=== PATIENT | female | born 1935 | race Caucasian/White ===

== ENCOUNTER 2017-04-25 08:22 | Outpatient (CLI) | payer MEDICARE, OTHER ==
[2017-04-25 13:30] LABS: BASOPHILS % (AUTO) 0.6 %; EOSINOPHILS # (AUTO) 0.2 10^3/uL (0.0-0.7); EOSINOPHILS % (AUTO) 3.1 %; HCT - HEMATOCRIT 41.3 % (37.0-47.0); HGB - HEMOGLOBIN 13.9 g/dL (12.0-16.0); LYMPHOCYTES # (AUTO) 2.1 10^3/uL (1.5-3.5); LYMPHOCYTES % (AUTO) 35.7 %; MEAN CORPUSCULAR HEMOGLOBIN 30.5 pg (27.0-31.0); MEAN CORPUSCULAR HGB CONC 33.5 g/dL (32.0-36.0); MEAN CORPUSCULAR VOLUME 91.1 fL (81.0-99.0); MEAN PLATELET VOLUME 7.8 fL (7.9-10.8); MONOCYTES # (AUTO) 0.4 10^3/uL (0.0-1.0); MONOCYTES % (AUTO) 7.6 %; NEUTROPHILS # (AUTO) 3.1 10^3/uL (1.5-6.6); RED BLOOD COUNT 4.54 10^6/uL (4.20-5.40); RED CELL DISTRIBUTION WIDTH 14.9 % (12.0-15.0); UNCORRECTED WHITE BLOOD COUNT 5.8 x10^3/uL; WHITE BLOOD COUNT 5.8 x10^3/uL (4.8-10.8)
[2017-04-25 13:52] LABS: ALBUMIN/GLOBULIN RATIO 1.4 (1.0-2.2); BILIRUBIN,TOTAL 0.9 mg/dL (0.2-1.0); BUN - BLOOD UREA NITROGEN 18 mg/dL (6-20); CALCIUM 9.3 mg/dL (8.5-10.3); CARBON DIOXIDE - CO2 28 mmol/L (21-32); CHLORIDE 102 mmol/L (101-111); CHOL/HDL RATIO 2.2 (<4.4); CHOLESTEROL 237 mg/dL; CREATININE 0.7 mg/dL (0.4-1.0); GFR - MDRD 80 (>89); GLUCOSE 94 mg/dL (70-100); HDL CHOLESTEROL 107 mg/dL; LDL/HDL RATIO 1.1 (<4.4); POTASSIUM 3.9 mmol/L (3.5-5.0); SODIUM 138 mmol/L (135-145); TOTAL PROTEIN 6.8 g/dL (6.7-8.2); TRIGLYCERIDES 69 mg/dL; VLDL CHOLESTEROL 14 mg/dL
== END 2017-04-25 08:23 | disposition home or self-care (01) ==
LOC: LAB.N 08:22
PROVIDERS: ATTEND Physician Assistant Medical
DX: E55.9 Vitamin D deficiency, unspecified (principal); E78.2 Mixed hyperlipidemia; F32.9 Major depressive disorder, single episode, unspecified
CPT/HCPCS: 36415; 80053; 80061; 82306; 84443; 85025

== ENCOUNTER 2017-05-02 10:37 | Outpatient (CLI) | payer MEDICARE, OTHER ==
[2017-05-02] MEDS ORDERED: IOPAMIDOL-300 50 ML VIAL PO ONE (12:29)
[2017-05-02] MEDS ORDERED: IOPAMIDOL-300 100 ML VIAL IVP ONE (12:29)
--- NOTE | 2017-05-02 19:24 | CT Report ---
CONTRAST-ENHANCED CT EXAM OF THE ABDOMEN AND PELVIS: 05/02/2017 CLINICAL HISTORY: An 81-year-old female with epigastric pressure and early satiety. COMPARISON: 05/08/2014 TECHNIQUE: Patient received 100 mL of Isovue-300. CAT scan of the abdomen and pelvis was done with axial, coronal, and sagittal reconstruction images taken at 5 x 5 mm intervals. In accordance with CT protocol optimization, one or more of the following dose reduction techniques w ere utilized for this exam: automated exposure control, adjustment of mA and/or KV based on patient size, or use of iterative reconstructive technique. FINDINGS: Moderate degree of cardiomegaly is noted. Liver and spleen are normal. Pancreas appears normal. Gallbladder shows no wall thickening. Common hepatic and common bile duct are normal. Periaortic and pericaval region show few small benign-appearing lymph nodes in the left periaortic re gion. The largest of these lymph nodes has a width of 0.7 cm. Finding most likely is of benign etio logy. Aorta shows no aneurysmal dilatation. Aorta is tortuous. Adrenal glands demonstrate a normal right adrenal gland. Left adrenal gland shows no definite abnorm ality. Kidneys show no significant abnormality. No pyelocaliceal system distention is noted. Bladd er is not distended. Detail of the pelvis is obscured by metallic artifact from a right total hip prosthesis. Bowel gas pattern demonstrates minimal diverticulosis in the proximal sigmoid colon. Right total hip prosthesis is noted in anatomical position and alignment. Anterior spurring is seen in the lumbar spine. Significant disk space narrowing is noted at L2-3. IMPRESSION: 1. MODERATE DEGREE OF CARDIOMEGALY. 2. MINIMAL DIVERTICULOSIS IS SEEN IN THE PROXIMAL SIGMOID COLON AND DISTAL DESCENDING COLON. 3. RIGHT TOTAL HIP PROSTHESIS IS SEEN IN PLACE IN ANATOMICAL POSITION AND ALIGNMENT. 4. OSTEOARTHRITIS AND DEGENERATIVE DISK DISEASE IS SEEN IN THE LUMBAR SPINE. JOB #: [id number] EXT JOB #:[id number]
== END 2017-05-02 10:38 | disposition home or self-care (01) ==
LOC: DI 10:37
PROVIDERS: ATTEND Physician Assistant Medical
DX: R10.13 Epigastric pain (principal); K57.30 Diverticulosis of large intestine without perforation or abscess without bleeding; I51.7 Cardiomegaly; Z96.641 Presence of right artificial hip joint; M47.896 Other spondylosis, lumbar region; M51.36 Other intervertebral disc degeneration, lumbar region
CPT/HCPCS: 74177; Q9967

== ENCOUNTER 2017-05-10 10:46 | Outpatient (CLI) | payer MEDICARE, OTHER | END 2017-05-10 10:47 | disposition home or self-care (01) | LOC: SC 10:46 | PROVIDERS: ATTEND Nurse Practitioner Family | DX: G47.33 Obstructive sleep apnea (adult) (pediatric) (principal); R09.02 Hypoxemia | CPT/HCPCS: 99214; G0463; 99212 ==

== ENCOUNTER 2017-10-08 11:09 | Observation (INO) | payer MEDICARE, OTHER ==
--- NOTE | 2017-10-08 12:41 | XRAY Preliminary Report ---
Exam: XR HIP W/PELVIS 2-3V LT IMPRESSION: Possible subtle lateral left femoral head/neck cortical fracture. If confirmation is sumi red, CT may be useful in this osteopenic patient. [facility] SITE ID: [id number]
--- NOTE | 2017-10-08 12:42 | ED Physician Documentation ---
History of Present Illness - Stated complaint Stated Complaint: FALL LT HIP - Chief complaint Chief Complaint: Ext Problem - History obtained from History obtained from: Patient (pt states that earlier today she tripped over a baby that was on the floor at [employer]. she states that she landed on her left hip. she states that she was not able to get up immediatly afterward but was eventually able to stand and has been walking since then. Pt rreports no other injureis form the fall.) - History of Present Illness Timing: Prior to arrival Review of Systems Constitutional: denies: Fever, Chills Cardiac: denies: Chest pain / pressure, Palpitations Respiratory: denies: Cough GI: denies: Abdominal Pain, Nausea, Vomiting, Constipation, Diarrhea Skin: denies: Rash, Lesions Musculoskeletal: reports: Joint pain (left hip). 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 - Present Medications Home Medications: Ambulatory Orders Medication Instructions Recorded Confirmed Estradiol DAILY 05/15/13 05/15/13 - Allergies Allergies/Adverse Reactions: Allergies Allergy/AdvReac Type Severity Reaction Status Date / Time sulfamethoxazole Allergy Intermediate Hives Verified 10/08/17 11:25 [From Septra] trimethoprim [From Septra] Allergy Intermediate Hives Verified 10/08/17 11:25 levofloxacin [From Levaquin] Allergy Nausea Verified 10/08/17 11:25 - Social History Does the pt smoke?: No Smoking Status: Never smoker Does the pt drink ETOH?: No Does the pt have substance abuse?: No - Immunizations Immunizations are current?: Yes - POLST Patient has POLST: No PD ED PE NORMAL - Vitals Vital signs reviewed: Yes - General General: Alert and oriented X 3, No acute distress, Well developed/nourished - Derm Derm: Normal color, Warm and dry, No rash - Extremities Extremities: No deformity, No tenderness to palpate (pt with minimal TTP ove the left hip. ), Normal ROM s pain (pt states that she has her baseline ROM of the left hip and left knee and left ankle. ), No edema - Neuro Neuro: Alert and oriented X 3, No motor deficit, No sensory deficit, Normal speech - Psych Psych: Normal mood, Normal affect Results - Vitals Vitals: Vital Signs - 24 hr 10/08/17 11:21 Temperature 36.6 C Heart Rate 90 Respiratory 16 Rate Blood Pressure 117/69 O2 Saturation 91 L Oxygen O2 Source Room air - Rads (name of study) left hip XR Radiology: Final report received left hip CT Radiology: Final report received PD MEDICAL DECISION MAKING - ED course Complexity details: d/w patient ED course: X-ray showing possible cortical fx. will obtain CT. CT showing left fem neck fx. discussed with Dr Rivers (Ortho) who asked the medicine team to admit and he will come in to discuss options with the pt. I informed the pt of the admission. Will admit. Departure - Departure Disposition: 66 [facility] DC/Xfer Clinical Impression: Fall, Contusion of left hip, Femoral neck fracture Condition: Good
--- NOTE | 2017-10-08 12:44 | XRAY Report ---
EXAM: LEFT HIP AND PELVIS RADIOGRAPHY EXAM DATE: 10/08/2017 12:23 PM. HISTORY: Fell on hip onto concrete. COMPARISONS: 03/01/2016. TECHNIQUE: 1 view of the pelvis and 1 view of the hip. FINDINGS: Bones: The bones appear diffusely demineralized. The frontal view suggests a subtle cortical break at the lateral left femur head/neck junction. A right hip prosthesis is present. 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 Joints: Normal joint alignment. Soft Tissues: Normal. No soft tissue swelling. IMPRESSION: Possible subtle lateral left femoral head/neck cortical fracture. If confirmation is sumi red, CT may be useful in this osteopenic patient. [facility] Referring Provider Line: [phone] SITE ID: [id number]
--- NOTE | 2017-10-08 14:54 | CT Preliminary Report ---
Exam: CT LOWER EXTREMITY LEFT W/O IMPRESSION: 1. Nondisplaced femoral neck impaction injury and series 6 image 86, series 5 image 82. 2. Left hip shows moderately severe osteoarthritis. 3. No pelvic masses. [facility] SITE ID: [id number]
--- NOTE | 2017-10-08 15:05 | CT Report ---
EXAM: LEFT HIP CT WITHOUT CONTRAST EXAM DATE: 10/08/2017 02:08 PM. CLINICAL HISTORY: Possible left hip fracture. COMPARISON: Plain x-ray earlier today. TECHNIQUE: Thin-section axial images were acquired of the knee without contrast. Post-processing: Cor onal and sagittal reformats. Other: None. In accordance with CT protocol optimization, one or more of the following dose reduction techniques w ere utilized for this exam: automated exposure control, adjustment of mA and/or KV based on patient s ize, or use of iterative reconstructive technique. FINDINGS: Bones: Nondisplaced femoral neck impaction injury. Please see series 6 image 86, series 5 image 82. The iliac bones are quite thin, this may be secondary to previous bone graft harvest sites or potenti ally congenital appearance. Joints: Osteoarthritis at the hip joint with "[id number]" appearance of the posterior femoral head- acetabular articulation. Musculature: Normal. No fatty atrophy. Other: No pelvic masses are identified. IMPRESSION: 1. Nondisplaced femoral neck impaction injury on series 6 image 86, series 5 image 82. 2. Left hip shows moderately severe osteoarthritis. 3. No pelvic masses. [facility] Referring Provider Line: [phone] SITE ID: [id number]
[2017-10-08] MEDS ORDERED: SODIUM CHLORIDE FLUSH 0.9% 10 ML SYRINGE IVP PRN (15:47)
[2017-10-08] MEDS ORDERED: ONDANSETRON ODT 4 MG TABLET TL PRN (15:47)
[2017-10-08 15:57] LABS: BASOPHILS % (AUTO) 0.3 %; EOSINOPHILS % (AUTO) 0.3 %; HCT - HEMATOCRIT 43.6 % (37.0-47.0); MEAN CORPUSCULAR HEMOGLOBIN 32.1 pg (27.0-31.0); MEAN CORPUSCULAR HGB CONC 34.4 g/dL (32.0-36.0); MEAN CORPUSCULAR VOLUME 93.4 fL (81.0-99.0); MEAN PLATELET VOLUME 7.6 fL (7.9-10.8); MONOCYTES # (AUTO) 0.5 10^3/uL (0.0-1.0); MONOCYTES % (AUTO) 3.7 %; NEUTROPHILS # (AUTO) 11.4 10^3/uL (1.5-6.6); NEUTROPHILS % (AUTO) 87.7 %; RED BLOOD COUNT 4.67 10^6/uL (4.20-5.40); RED CELL DISTRIBUTION WIDTH 13.9 % (12.0-15.0)
[2017-10-08 16:15] LABS: INR 0.9 (0.8-1.2); PT - PROTHROMBIN TIME 10.4 secs (9.9-12.6)
[2017-10-08 16:22] LABS: ALBUMIN/GLOBULIN RATIO 1.4 (1.0-2.2); BILIRUBIN,TOTAL 0.9 mg/dL (0.2-1.0); CALCIUM 9.2 mg/dL (8.5-10.3); CREATININE 0.6 mg/dL (0.4-1.0); POTASSIUM 3.6 mmol/L (3.5-5.0)
[2017-10-08 16:23] LABS: PARTIAL THROMBOPLASTIN TIME 23.1 secs (24.9-33.3)
--- NOTE | 2017-10-08 16:55 | PROVIDER PROGRESS NOTE ---
Subjective - Prog Note Date Prog Note Date: 10/08/17 Prog Note Time: 16:51 - Subjective Subjective: Painful left hip after a GLF at [facility] this AM. Prior to fall, some left hip stiffness but minimally painful and independent ambulation. Has had left THR by at [facility]; no surgery planned on left as left side has been functional with only mild pain. Objective - Lab Results Fish Bones: 10/08/17 15:52 10/08/17 16:04 Other Labs: Lab Results x24hrs 10/08/17 10/08/17 10/08/17 Range/Units 16:04 16:04 15:52 WBC 13.0 H (4.8-10.8) x10^3/uL RBC 4.67 (4.20-5.40) 10^6/uL Hgb 15.0 (12.0-16.0) g/dL Hct 43.6 (37.0-47.0) % MCV 93.4 (81.0-99.0) fL MCH 32.1 H (27.0-31.0) pg MCHC 34.4 (32.0-36.0) g/dL RDW 13.9 (12.0-15.0) % Plt Count 229 (130-450) 10^3/uL MPV 7.6 L (7.9-10.8) fL Neut # 11.4 H (1.5-6.6) 10^3/uL Lymph # 1.0 L (1.5-3.5) 10^3/uL [place] # 0.5 (0.0-1.0) 10^3/uL Eos # 0.0 (0.0-0.7) 10^3/uL Baso # 0.0 (0.0-0.1) 10^3/uL Absolute Nucleated RBC 0.00 x10^3/uL Nucleated RBC % 0.0 /100WBC PT 10.4 (9.9-12.6) secs INR 0.9 (0.8-1.2) APTT 23.1 L (24.9-33.3) secs Sodium 138 (135-145) mmol/L Potassium 3.6 (3.5-5.0) mmol/L Chloride 101 (101-111) mmol/L Carbon Dioxide 27 (21-32) mmol/L Anion Gap 10.0 (6-13) BUN 15 (6-20) mg/dL Creatinine 0.6 (0.4-1.0) mg/dL Estimated GFR (MDRD) 95 (>89) Glucose 107 H (70-100) mg/dL Calcium 9.2 (8.5-10.3) mg/dL Total Bilirubin 0.9 (0.2-1.0) mg/dL AST 35 (10-42) IU/L ALT 23 (10-60) IU/L Alkaline Phosphatase 61 (42-121) IU/L Total Protein 7.0 (6.7-8.2) g/dL Albumin 4.1 (3.2-5.5) g/dL Globulin 2.9 (2.1-4.2) g/dL Albumin/Globulin Ratio 1.4 (1.0-2.2) Lipase 23 (22-51) U/L - Diagnostic Imaging Diagnostic Imaging Comments: XR and CT scan consistent with moderate DLD (pre-existing) and an impact, valgus left femoral neck hip fracture - Other Results/Comments Other Results/Comments: EXAM: mild left anterior groin tenderness. Some pain with hip ROM. Moves toes well. Sensation intact. Good cap filling of toes Assessment/Plan - Problem List (1) Femoral neck fracture Impression: Impacted, valgus left femoral neck hip fracture PLAN: Diagnosis and treatment options explained extensively with patient. Non operative, cannulated screw fixation, and THR suregeries discussed and questions answered. She wishes to go with non operative treatment, realizing ther is at least a 10-15% chance that the fracture could displaced without surgical fixation and if it should displace, would liklely require THR. Will be admitted for observation status tonight with SNF placement in AM. Would have her go toe touch weight bearing on left side for 3-4 weeks. [facility] at [facility] in about 2 weeks for exam and XR. Qualifiers: Encounter type: initial encounter Fracture type: closed Laterality: left Qualified Code(s): S72.002A - Fracture of unspecified part of neck of left femur, initial encounter for closed fracture
[2017-10-08] MEDS ORDERED: ACETAMINOPHEN 1,000 MG/100 ML 100 ML IV PRN (17:30)
--- NOTE | 2017-10-08 18:36 | HISTORY & PHYSICAL EXAMINATION ---
Chief Complaint - Chief Complaint Chief Complaint: fall History of Present Illness - Admitted From Admitted From:: ED - History Obtained From Records Reviewed: yes History obtained from: chart review, patient. Exam Limitations: none. 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 She came to the ED today after stumbling over a baby on the floor while at [employer]. She admits to falling directly on her left hip and had difficulty getting back up, but later was able to get up. She came to the ED and was evaluated by ortho surgery, who talked at length with the patient about surgical options. The patient wishes to "get a second opinion", so a transfer to [facility] can be arranged for tomorrow. She will be kept on observation for pain control and transportation arrangements. 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: section, Hysterectomy - Family & Social History Family History: Mother: , Father: , Sister: Living arrangement: At home Living Situation: Alone - Substance History Use: Uses substance without health or social issues: NONE Abuse: Recurrent use of substance despite neg consequences: Alcohol (4 glasses of wine per week.) Dependence: Experiences withdrawal or developed tolerances: NONE - POLST Patient has POLST: No POLST Status: Full Code Meds/Allgy - Home Medications Home Medications: Ambulatory Orders Medication Instructions Recorded Confirmed Estradiol 0.25 mg PO MOWEFRSA@0900 05/15/13 10/08/17 - Allergies Allergies/Adverse Reactions: Allergies Allergy/AdvReac Type Severity Reaction Status Date / Time sulfamethoxazole Allergy Intermediate Hives Verified 10/08/17 11:25 [From Septra] trimethoprim [From Septra] Allergy Intermediate Hives Verified 10/08/17 11:25 levofloxacin [From Levaquin] Allergy Nausea Verified 10/08/17 11:25 Review of Systems - Eyes Eyes: reports: Corrective lenses - Ears, Nose & Throat Ears, Nose & Throat: reports: Hearing loss, Hearing aids - All Other Systems All Other Systems: reports: Reviewed and negative Exam - Vital Signs Reviewed Vital Signs: Yes Vital Signs: Vital Signs x48h Temp Pulse Resp BP Pulse Ox 10/08/17 17:14 36.7 C 112 H 16 106/87 H 100 - Physical Exam General Appearance: positive: No acute distress, Alert Eyes Bilateral: positive: Normal inspection, Other (bulging eyes) ENT: positive: ENT inspection nml, Pharynx nml, No signs of dehydration, Other ( upper respiratory congestion.) Neck: positive: Nml inspection, Thyroid nml, No JVD, Trachea midline Respiratory: positive: Chest non-tender, No respiratory distress, Breath sounds nml Cardiovascular: positive: Regular rate & rhythm, No gallop, Systolic murmur Peripheral Pulses: positive: 2+ Abdomen: positive: Non-tender, No organomegaly, Nml bowel sounds, No distention Back: positive: Nml inspection Skin: positive: Color nml, Warm, Dry Extremities: positive: Non-tender, Full ROM, Nml appearance, Other (left hip discomfort, able to ambulate.) Neurologic/Psychiatric: positive: Oriented x3, CN's nml (2-12), Motor nml, Sensation nml, Mood/affect nml Reflexes: Bicep (R): 3+, Bicep (L): 3+ Conclusion/Plan - Problem List (1) Contusion of left hip Conclusion/Plan: Non-displaced femoral neck impact injury noted on CT scan completed on admission. Dr. Rivers-ortho surgery consulted and spoke to patient at length regarding possible treatment options. Plan: Patient prefers to gather a 2nd opinion near [facility]. No surgery, so patient changed to observation. (2) Fall Conclusion/Plan: Patient admits to stumbling over a child while at [employer] this morning, and consequently had a mechanical with a localized injury to left hip. Plan: PT to evaluate in AM, then possibly home verses a transfer to [place] as requested. (3) Femoral neck fracture Conclusion/Plan: Non-displaced femoral neck impact injury noted on CT scan completed on admission. Dr. Rivers-ortho surgery consulted and spoke to patient at length regarding possible treatment options. Plan: Continue to monitor pain overnight. Qualifiers: Encounter type: initial encounter Fracture type: closed Laterality: left Qualified Code(s): S72.002A - Fracture of unspecified part of neck of left femur, initial encounter for closed fracture (4) Bronchitis Conclusion/Plan: Patient has a history of chronic restrictive lung disease, and consequently gets bronchitis and pneumonia often. Plan: Patient cannot tolerate inhalers, so we will monitor and offer home CPAP with a 2.5L bleed in when the device arrives from home via friend to transport. 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 This is unlikely to resolve, and has been well managed since boys born with this condition only live for a few hours. Plan: Continue supportive care. Greater than 30 minutes was spent on this admission including [id number] exam and counseling. DVT prophylaxis with SCD devices. - Lab Results Lab results reviewed: Yes Fish Bones: 10/08/17 15:52 10/08/17 16:04 - Diagnostic Imaging Results Diagnostic Imaging Results: positive: Prelim report reviewed - EKG Results EKG Interpreted Independently: Yes Issues/Core Measures - Anticipated LOS Anticipated Stay Length: Less than 2 midnights - DVT/VTE - Prophylaxis VTE/DVT Device ordered at admit?: Yes VTE/DVT Prophylaxis med ordered at admit?: No Not Ordered - Medical Reason: Contraindicated - Stroke - Rehab Assessment Rehab services assessment to be ordered?: Yes - AMI - Statin at Admit Aspirin Prescribed on Admit: No Not Ordered - Medical Reason: Contraindicated
[2017-10-08] MEDS ORDERED: ACETAMINOPHEN 325 MG TABLET PO PRN (20:25)
--- NOTE | 2017-10-08 20:52 | CONSULTATION NOTE ---
DATE OF CONSULTATION: 10/08/2017 00:00:00 REQUESTING PROVIDER: Dr. Jean Claude Miranda of the Emergency Room. HISTORY OF PRESENT ILLNESS: The patient is a 82-year-old female who apparently tripped over a child at [employer] this morning falling onto her left side. She noted immediate pain in her anterior groin, but was able to stand and ambulate, weightbearing on her left side with some discomfort. When this did not improve later in the morning she was taken to the emergency room here at [facility], where she was evaluated for hip injury. The patient denied any loss of consciousness or ot her injuries. X-rays that were taken at the time of her emergency room evaluation showed a possibilit y of a mildly impacted valgus oriented left femoral neck fracture. Followup CT scan of the left hip c onfirmed that she had an impacted left femoral neck fracture. The patient was to be admitted to the edical service and for consideration of possible surgical intervention of this fracture. The patient' s past medical history is significant for a right total hip replacement done in the past by an orthop edic surgeon based out [facility]. PHYSICAL EXAMINATION: Left hip shows some very minimal anterior groin tenderness on palpation. Left h ip range of motion including rotation slows mild discomfort in the hip as well. The patient was obser brit in the emergency room ambulating, weightbearing as tolerated on the left side with some mild disc omfort. The patient moves her toes today without any problems. Sensation is intact. Good capillary fi lling of the toes as well. Review of the x-rays and CT scan of left hip confirmed her impacted valgus oriented left femoral nec k fracture. ASSESSMENT: 1. Closed left femoral neck fracture of the hip - is impacted with mild valgus orientation. 2. Status post right total hip replacement in the past. PLAN: The patient's diagnosis was explained to her today. Treatment options were also explained with regards management. This would include nonoperative treatment, multiple cannulated screw fixation of fracture or possibly either a bipolar hip endoprosthesis versus a left total hip replacement valeria carter We discussed her options and pros and cons of each treatment extensively in the emergency room. Af ter discussion with her friends the patient has opted to go with nonoperative treatment. She is aware that there is a 10-15% chance that without surgical stabilization of the fracture this may go on to displace. This will not only be more painful, but would likely result in more or less options surgica lly - likely either a hip and the prostheses or a total hip replacement. Have offered to proceed with a lesser procedure such as multiple cannulated screw fixation of her fracture this evening to minimi ze the chance of the fracture displacing. However, again, the patient does not want any surgery at th is point. We will have her admitted to the medical service overnight for pain control and have her se e the therapist in the morning to begin mobilization before transfer to a skilled nursing. She may go we ightbearing as tolerated on this extremity though likely she will be toe-touch weightbearing status o n this side. Limit some of her ambulation, to just in room ambulation until there are more signs of t he fracture healing and she is less symptomatic. She should followup with a local orthopedist either here on [facility] or with her hip arthroplasty over at [facility] about 2 weeks time for fo llowup of her left hip fracture and repeat x-rays. JOB #: [id number] EXT JOB #:[id number]
[2017-10-08] MEDS ORDERED: SODIUM CHLORIDE FLUSH 0.9% 10 ML SYRINGE IVP SCH (22:00)
--- NOTE | 2017-10-08 22:43 | DISCHARGE SUMMARY ---
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 Dr. Bernard surgery consulted and spoke to patient at length regarding possible treatment options. Dr. Doll, a second ortho surgeon also spoke to patient immediately prior to discharge. Both recommend no surgery. Plan: Patient prefers to gather a 2nd opinion near [facility]. No surgery, so patient changed to observation. Patient sent home with oxycodone for pain control and home physical therapy. (2) Fall Patient admits to stumbling over a child while at [employer] this morning, and consequently had a mechanical with a localized injury to left hip. Plan: PT to evaluate, who recommends out patient PT, so this was ordered. (3) Femoral neck fracture Non-displaced femoral neck impact injury noted on CT scan completed on admission. Dr. Bernard surgery consulted and spoke to patient at length regarding possible treatment options. Plan: Continue to monitor pain, and oxycodone written for home use. (4) Bronchitis Patient has a history of chronic restrictive lung disease, and consequently gets bronchitis and pneumonia often. Plan: Patient cannot tolerate inhalers, so we will monitor and offer home CPAP with a 2.5L bleed in when the device arrives from home via friend to transport. 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 This is unlikely to resolve, and has been well managed since boys born with this condition only live for a few hours. Plan: Continue supportive care. 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 Plan: Manage as before. - HPI History of Present Illness: Rosemary Box(who wishes to called Leonor) is a 82 year old female with a history of Benedicto-Townsend syndrome, chronic respiratory pulmonary dysplasia, anxiety, chronic hearing loss, frequent pneumonia, and chronic CPAP use with a 2.5L bleed in. She came to the ED today after stumbling over a baby on the floor while at [employer]. She admits to falling directly on her left hip and had difficulty getting back up, but later was able to get up. She came to the ED and was evaluated by ortho surgery, who talked at length with the patient about surgical options. The patient wishes to "get a second opinion", so a transfer to [facility] can be arranged for tomorrow. She will be kept on observation for pain control and transportation arrangements. - CONSULTS | PROCEDURES Consultations: Ortho - HOSPITAL COURSE Hospital Course: Patient had no issues overnight. Per case management, we cannot transfer to another facility due to observation status. Ortho surgeons x2 met with patient about treatment options who both recommended no surgical repair. Patient was sent home with PT orders and a script for out patient narcotics. She has a few friends/family in the area willing to assist with ADLs for the next few weeks. - ALLERGIES Allergies/Adverse Reactions: Allergies Allergy/AdvReac Type Severity Reaction Status Date / Time sulfamethoxazole Allergy Intermediate Hives Verified 10/08/17 11:25 [From Septra] trimethoprim [From Septra] Allergy Intermediate Hives Verified 10/08/17 11:25 levofloxacin [From Levaquin] Allergy Nausea Verified 10/08/17 11:25 - MEDICATIONS Home Medications: Ambulatory Orders Medication Instructions Recorded Confirmed Estradiol 0.25 mg PO MOWEFRSA@0900 05/15/13 10/08/17 oxyCODONE [Roxicodone] 5 mg PO ONCE #30 tablet 10/09/17 - PHYSICAL EXAM AT DISCHARGE General Appearance: positive: No acute distress, Alert Eyes Bilateral: positive: Normal inspection, PERRL, Other (buggy eyes) ENT: positive: ENT inspection nml, Pharynx nml, No signs of dehydration Neck: positive: Nml inspection, Thyroid nml, No JVD, Trachea midline Respiratory: positive: Chest non-tender, No respiratory distress, Breath sounds nml Cardiovascular: positive: Regular rate & rhythm, No gallop, Systolic murmur Peripheral Pulses: positive: 2+ Abdomen: positive: Non-tender, No organomegaly, Nml bowel sounds, No distention Rectal: positive: Non-tender Back: positive: Nml inspection Skin: positive: Color nml, No rash, Warm, Dry Extremities: positive: Non-tender, Full ROM, Nml appearance, No pedal edema, Joint swelling, Other (left hip soreness, loss of ROM.) Neurologic/Psychiatric: positive: Oriented x3, CN's nml (2-12), Motor nml, Sensation nml, Weakness, Sensory loss, Depressed mood/affect Reflexes: Bicep (R): 3+, Bicep (L): 3+ - LABS Result Diagrams: 10/08/17 15:52 10/08/17 16:04 - DIAGNOSTIC IMAGING Diagnostic Imaging Results: Final report reviewed - FOLLOW UP Follow Up: Home health ordered for physical therapy. Please have friends/family assist you when needed. - TIME SPENT Time Spent in Discharge (Minutes): 60
[2017-10-09] MEDS: oxyCODONE 5 MG TABLET PO PRN ×2 (04:33→12:24)
[2017-10-09] MEDS: FAMOTIDINE 20 MG TABLET PO SCH ×2 (09:14→11:33)
[2017-10-09] MEDS: POLYETHYLENE GLYCOL 3350 17 GM PACKET PO SCH ×2 (09:14→11:33)
--- NOTE | 2017-10-09 10:19 | Discharge Plan ---
Discharge Plan Disposition: 01 Home, Self Care Condition: Good Diet: Regular Activity Restrictions: Wt Bearing as Tolerated Shower Restrictions: No Driving Restrictions: No Weight Bearing: Partial Weight Additional Instructions or Follow Up instructions: Per Dr. Rivers: Would have her go toe touch weight bearing on left side for 3-4 weeks. Follow up with either [facility] orthopedics or with her hip surgeon at [facility] in about 2 weeks for exam and XR. You can also follow up with your PCP, although nothing medically besides your injury is different. If you have increased pain, see your PCP or report to ED. No Smoking: If you smoke, Please STOP! Call for help. Follow-up with: Vicenta Hilliard PA-C [Primary Care Provider] -
--- NOTE | 2017-10-09 15:34 | CONSULTATION NOTE ---
Referring Provider Name of Referring Provider:: Hospitalist Chief Complaint - Chief Complaint Chief Complaint: Left hip pain after fall. History of Present Illness - Admitted From Admitted From:: ER - History Obtained From History obtained from: patient Exam Limitations: Sitting comfortably - History of Present Illness HPI Comment/Other: 82 yr old independent female drove herself to ER from [facility] several hours after falling in [employer] -- tripping over small child. She says she fell directly on the hip and had proximal thigh pain as she indicates. Aches and pains elsewhere not significantly above baseline. 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 Had prior contralateral BRIDGETTE rsulting in > 1.5 inch LLD (shosrt left) compensated by shoe lift. 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) Psych: reports: Anxiety Musculoskeletal: reports: Scoliosis Derm: reports: None MRSA Hx?: No Other Past Medical History: Benedicto Plano Syndrome, CRPD - Past Surgical History General: reports: Appendectomy Ortho: reports: Hip replacement /JACK MACHINE OPERATOR: reports: section, Hysterectomy - Family & Social History Family History: Mother: , Father: , Sister: Living arrangement: At home Living Situation: Alone - Substance History Use: Uses substance without health or social issues: NONE Abuse: Recurrent use of substance despite neg consequences: Alcohol (4 glasses of wine per week.) Dependence: Experiences withdrawal or developed tolerances: NONE - POLST Patient has POLST: No POLST Status: Full Code Meds/Allgy - Home Medications Home Medications: Ambulatory Orders Medication Instructions Recorded Confirmed Estradiol 0.25 mg PO MOWEFRSA@0900 05/15/13 10/08/17 - Allergies Allergies/Adverse Reactions: Allergies Allergy/AdvReac Type Severity Reaction Status Date / Time sulfamethoxazole Allergy Intermediate Hives Verified 10/08/17 11:25 [From Septra] trimethoprim [From Septra] Allergy Intermediate Hives Verified 10/08/17 11:25 levofloxacin [From Levaquin] Allergy Nausea Verified 10/08/17 11:25 Exam - Vital Signs Reviewed Vital Signs: Yes Vital Signs: Vital Signs x48h Temp Pulse Pulse Pulse Resp BP Pulse Ox 10/09/17 13:10 118 H 113 H 10/09/17 11:58 37.7 C H 106 H 19 101/59 L 94 10/09/17 08:24 37.1 C 97 19 105/56 L 95 - Physical Exam Comments/Other: Cachectic female seated on bed edge comfortably. Mild pain with left hip flexion and external rotation/ internal rotation. Pulse not palpable. Conclusion/Plan - Diagnosis Diagnosis: Left Hip Garden Stage I femoral neck fracture. Osteodysplasia creating difficult angles for pinning. Healing in current position would be stable for her low level of demand. - Plan Plan: OK for discharge this evening. Pain seems controlled by 5mg narcotic. Instructed in 15 lb wt limit (using bathroom scales) with walker. Severe gait limmit secondary to poor lung function. Patient insists she has friends which will help her regularly. Needs follow-up in my office in 2 wks. Instructed to call for ambulance to come to ER if hip condition worsens at all. - Lab Results Lab results reviewed: Yes Fish Bones: 10/08/17 15:52 10/08/17 16:04 Labs, EKG, Meds, Allergy - Lab Results Fish Bones: 10/08/17 15:52 10/08/17 16:04 Other Lab Results: Lab Results x24hrs 10/08/17 10/08/17 10/08/17 Range/Units 16:04 16:04 15:52 WBC 13.0 H (4.8-10.8) x10^3/uL RBC 4.67 (4.20-5.40) 10^6/uL Hgb 15.0 (12.0-16.0) g/dL Hct 43.6 (37.0-47.0) % MCV 93.4 (81.0-99.0) fL MCH 32.1 H (27.0-31.0) pg MCHC 34.4 (32.0-36.0) g/dL RDW 13.9 (12.0-15.0) % Plt Count 229 (130-450) 10^3/uL MPV 7.6 L (7.9-10.8) fL Neut # 11.4 H (1.5-6.6) 10^3/uL Lymph # 1.0 L (1.5-3.5) 10^3/uL [place] # 0.5 (0.0-1.0) 10^3/uL Eos # 0.0 (0.0-0.7) 10^3/uL Baso # 0.0 (0.0-0.1) 10^3/uL Absolute Nucleated RBC 0.00 x10^3/uL Nucleated RBC % 0.0 /100WBC PT 10.4 (9.9-12.6) secs INR 0.9 (0.8-1.2) APTT 23.1 L (24.9-33.3) secs Sodium 138 (135-145) mmol/L Potassium 3.6 (3.5-5.0) mmol/L Chloride 101 (101-111) mmol/L Carbon Dioxide 27 (21-32) mmol/L Anion Gap 10.0 (6-13) BUN 15 (6-20) mg/dL Creatinine 0.6 (0.4-1.0) mg/dL Estimated GFR (MDRD) 95 (>89) Glucose 107 H (70-100) mg/dL Calcium 9.2 (8.5-10.3) mg/dL Total Bilirubin 0.9 (0.2-1.0) mg/dL AST 35 (10-42) IU/L ALT 23 (10-60) IU/L Alkaline Phosphatase 61 (42-121) IU/L Total Protein 7.0 (6.7-8.2) g/dL Albumin 4.1 (3.2-5.5) g/dL Globulin 2.9 (2.1-4.2) g/dL Albumin/Globulin Ratio 1.4 (1.0-2.2) Lipase 23 (22-51) U/L - Medications Medications: Ambulatory Orders Medication Instructions Recorded Confirmed Estradiol 0.25 mg PO MOWEFRSA@0900 05/15/13 10/08/17 - Allergy Allergy: Allergies Allergy/AdvReac Type Severity Reaction Status Date / Time sulfamethoxazole Allergy Intermediate Hives Verified 10/08/17 11:25 [From Septra] trimethoprim [From Septra] Allergy Intermediate Hives Verified 10/08/17 11:25 levofloxacin [From Levaquin] Allergy Nausea Verified 10/08/17 11:25 Estradiol 0.25 mg PO LORI@0900 05/15/13 - Other Other Results/Comments: Radiology: AP pelvis and CT of left hip studied closely. THere is pre- morbid deformity of the proximal femur with 150 deg neck angle and odd concavity to the lateral femoral cortex. THere is a 15deg impacted fracture creating a greater valgus than pre-morbid. There is no arthritic change.
[2017-10-09 16:17] VITALS: BP 111/51
== END 2017-10-09 16:52 | disposition home or self-care (01) ==
LOC: ED 11:09 → INTOOBSV 15:47 → MS2 15:47 → OBS 18:27
PROVIDERS: ADMIT Nurse Practitioner; ATTEND Nurse Practitioner
DX: S72.002A Fracture of unspecified part of neck of left femur, initial encounter for closed fracture (principal); W01.0XXA Fall on same level from slipping, tripping and stumbling without subsequent striking against object, initial encounter; Y93.01 Activity, walking, marching and hiking; Y92.22 Religious institution as the place of occurrence of the external cause; Y99.8 Other external cause status; J98.4 Other disorders of lung; Q77 Osteochondrodysplasia with defects of growth of tubular bones and spine; H91.90 Unspecified hearing loss, unspecified ear; Z87.01 Personal history of pneumonia (recurrent); Z96.641 Presence of right artificial hip joint
CPT/HCPCS: 36415; 73502; 73700; 80053; 83690; 85025; 85610; 85730; 97161; 99283; 99284; A9270; G0378; G8978; G8979

== ENCOUNTER 2018-05-01 13:38 | Outpatient (CLI) | payer MEDICARE, OTHER | END 2018-05-01 13:39 | disposition home or self-care (01) | LOC: SC 13:38 | PROVIDERS: ATTEND Nurse Practitioner Family | DX: G47.33 Obstructive sleep apnea (adult) (pediatric) (principal) | CPT/HCPCS: 99214; G0463; 99212 ==

== ENCOUNTER 2018-05-22 06:04 | Outpatient (CLI) | payer MEDICARE, OTHER ==
[2018-05-22] MEDS ORDERED: IOPAMIDOL-300 100 ML VIAL ONE (06:29)
[2018-05-22] MEDS ORDERED: IOPAMIDOL-300 50 ML VIAL ONE (06:30)
[2018-05-22] MEDS ORDERED: IOPAMIDOL-300 100 ML VIAL IVP ONE (07:54)
[2018-05-22] MEDS ORDERED: IOPAMIDOL-300 50 ML VIAL PO ONE (07:54)
--- NOTE | 2018-05-22 13:09 | CT Report ---
Procedure Date: 05/22/2018 Accession Number: [id number] / [id number] Procedure: CT - Abdomen/Pelvis W/ CPT Code: FULL RESULT: EXAM: Abdomen/Pelvis W/ DATE: 05/22/2018 7:46 AM CLINICAL HISTORY: ABDOMINAL BLOATING COMPARISON: 05/02/2017 TECHNIQUE: Routine helical CT imaging was performed through the abdomen and pelvis. IV contrast: 80 mL Isovue 300. Enteric contrast: Yes. Reconstructions: Coronal and sagittal. In accordance with CT protocol optimization, one or more of the following dose reduction techniques were utilized for this exam: automated exposure control, adjustment of mA and/or KV based on patient size, or use of iterative reconstructive technique. FINDINGS: Lung Bases: Mild emphysema. Liver: Diffuse decrease in attenuation, compatible with fatty infiltration. No focal lesion. Gallbladder/Bile Ducts: Unremarkable. Spleen: Normal. Pancreas: Normal. Adrenal Glands: Normal. Kidneys: Normal. No masses or hydronephrosis. Peritoneal Cavity/Bowel: Normal. No free fluid, free air or adenopathy. No masses or acute inflammatory process. Pelvic Organs: Colonic diverticulosis, without CT evidence of diverticulitis. Vasculature: No aneurysms or other significant abnormality. Bones: Right hip replacement. Degenerative changes. Other: None. IMPRESSION: Diverticulosis, without CT evidence of diverticulitis. No bowel obstruction or perforation. RADIA
== END 2018-05-22 06:05 | disposition home or self-care (01) ==
LOC: DI 06:04
PROVIDERS: ATTEND Physician Assistant Medical
DX: R14.0 Abdominal distension (gaseous) (principal); K57.30 Diverticulosis of large intestine without perforation or abscess without bleeding
CPT/HCPCS: 74177; Q9967

== ENCOUNTER 2019-02-12 14:47 | Outpatient (CLI) | payer MEDICARE, OTHER | END 2019-02-12 14:48 | disposition home or self-care (01) | LOC: SC 14:47 | PROVIDERS: ATTEND Nurse Practitioner Family | DX: G47.33 Obstructive sleep apnea (adult) (pediatric) (principal); R09.02 Hypoxemia | CPT/HCPCS: 99214; G0463; 99212 ==

== ENCOUNTER 2019-02-26 19:04 | Outpatient (CLI) | payer MEDICARE, OTHER | END 2019-02-26 19:05 | disposition home or self-care (01) | LOC: SC 19:04 | PROVIDERS: ATTEND Internal Medicine Pulmonary Disease | DX: G47.33 Obstructive sleep apnea (adult) (pediatric) (principal) | CPT/HCPCS: 95811 ==

== ENCOUNTER 2019-03-04 08:27 | Outpatient (CLI) | payer MEDICARE, OTHER ==
--- NOTE | 2019-03-04 10:43 | XRAY Report ---
Reason: PAIN IN LEFT SHOULDER Procedure Date: 03/04/2019 Accession Number: [id number] / [id number] Procedure: WCP - Shoulder 3 View LT CPT Code: FULL RESULT: EXAM: LEFT SHOULDER RADIOGRAPHY EXAM DATE: 03/04/2019 08:45 AM. CLINICAL HISTORY: Pain in left shoulder. COMPARISON: None. TECHNIQUE: 3 views. FINDINGS: Bones: Irregularity along the humeral diaphysis with exuberant bone formation likely represents a previously healed fracture. No acute fracture is detected. Similarly, there is a healed fracture of the clavicle on the left. Joints: No dislocation is identified. There are degenerative changes of both the AC and glenohumeral joint, at least moderate. Soft tissues: The visualized hemithorax is unremarkable. No soft tissue swelling. IMPRESSION: Remote humeral and clavicular fractures with no acute fracture or dislocation seen. RADIA
== END 2019-03-04 08:28 | disposition home or self-care (01) ==
LOC: DI.WCP 08:27
PROVIDERS: ATTEND Physician Assistant
DX: M25.512 Pain in left shoulder (principal); Z87.81 Personal history of (healed) traumatic fracture; E78.5 Hyperlipidemia, unspecified; E55.9 Vitamin D deficiency, unspecified
CPT/HCPCS: 36415; 80053; 80061; 82306; 83721; 85025

== ENCOUNTER 2019-03-04 09:12 | Outpatient (CLI) | payer MEDICARE, OTHER ==
[2019-03-04 14:17] LABS: BASOPHILS # (AUTO) 0.1 10^3/uL (0.0-0.1); EOSINOPHILS # (AUTO) 0.1 10^3/uL (0.0-0.7); EOSINOPHILS % (AUTO) 2.8 %; HGB - HEMOGLOBIN 14.7 g/dL (12.0-16.0); LYMPHOCYTES # (AUTO) 1.6 10^3/uL (1.5-3.5); LYMPHOCYTES % (AUTO) 32.1 %; MEAN CORPUSCULAR HEMOGLOBIN 31.3 pg (27.0-31.0); MEAN CORPUSCULAR HGB CONC 33.4 g/dL (32.0-36.0); MEAN CORPUSCULAR VOLUME 93.6 fL (81.0-99.0); MONOCYTES # (AUTO) 0.5 10^3/uL (0.0-1.0); MONOCYTES % (AUTO) 9.2 %; NEUTROPHILS # (AUTO) 2.8 10^3/uL (1.5-6.6); NEUTROPHILS % (AUTO) 54.9 %; PLT - PLATELET COUNT 234 10^3/uL (130-450); RED BLOOD COUNT 4.68 10^6/uL (4.20-5.40); RED CELL DISTRIBUTION WIDTH 13.3 % (12.0-15.0); WHITE BLOOD COUNT 5.1 x10^3/uL (4.8-10.8)
[2019-03-04 14:35] LABS: ALBUMIN 4.2 g/dL (3.2-5.5); ALBUMIN/GLOBULIN RATIO 1.4 (1.0-2.2); ALKALINE PHOSPHATASE 75 IU/L (42-121); ALT ALANINE AMINOTRANSFERASE 20 IU/L (10-60); AST ASPARTATE AMINOTRANSFERASE 31 IU/L (10-42); BILIRUBIN,TOTAL 0.8 mg/dL (0.2-1.0); BUN - BLOOD UREA NITROGEN 13 mg/dL (6-20); CALCIUM 9.6 mg/dL (8.5-10.3); CARBON DIOXIDE - CO2 31 mmol/L (21-32); CHLORIDE 96 mmol/L (101-111); CHOL/HDL RATIO 2.1 (<4.4); CHOLESTEROL 256 mg/dL; CREATININE 0.7 mg/dL (0.4-1.0); GFR - MDRD 80 (>89); GLUCOSE 95 mg/dL (70-100); HDL CHOLESTEROL 122 mg/dL; LDL CHOLESTEROL,CALCULATED 124 mg/dL; SODIUM 136 mmol/L (135-145); TOTAL PROTEIN 7.1 g/dL (6.7-8.2); VLDL CHOLESTEROL 10 mg/dL
== END 2019-03-04 09:13 | disposition home or self-care (01) ==
LOC: LAB.WCP 09:12
PROVIDERS: ATTEND Physician Assistant
DX: E78.5 Hyperlipidemia, unspecified (principal); E55.9 Vitamin D deficiency, unspecified
CPT/HCPCS: 36415; 80053; 80061; 82306; 83721; 85025

== ENCOUNTER 2019-03-18 13:10 | Outpatient (CLI) | payer MEDICARE, OTHER | END 2019-03-18 13:11 | disposition home or self-care (01) | LOC: SC 13:10 | PROVIDERS: ATTEND Nurse Practitioner Family | DX: G47.33 Obstructive sleep apnea (adult) (pediatric) (principal); R09.02 Hypoxemia | CPT/HCPCS: 99214; G0463; 99212 ==

== ENCOUNTER 2019-03-20 11:10 | Outpatient (CLI) | payer MEDICARE, OTHER ==
[2019-03-20] MEDS ORDERED: IOVERSOL 320 100 ML VIAL IVP ONE ×2 (11:21→14:27)
[2019-03-20] MEDS ORDERED: IOVERSOL 320 50 ML VIAL ONE (11:21)
--- NOTE | 2019-03-20 13:57 | CT Report ---
Reason: DIVERTICULITIS,ACUTE Procedure Date: 03/20/2019 Accession Number: [id number] / [id number] Procedure: CT - Abdomen/Pelvis W CPT Code: FULL RESULT: EXAM: CT ABDOMEN AND PELVIS EXAM DATE: 03/20/2019 12:49 PM. CLINICAL HISTORY: DIVERTICULITIS,ACUTE. COMPARISONS: ABDOMEN/PELVIS W05/22/2018 7:40 AM ABDOMEN/PELVIS W/ 05/02/2017 12:20 PM ABD/PEL 09/22/2007 9:23 AM. TECHNIQUE: Routine helical CT imaging was performed through the abdomen and pelvis. IV contrast: ISOVUE 300 80mL. Enteric contrast: No. Reconstructions: Coronal and sagittal. In accordance with CT protocol optimization, one or more of the following dose reduction techniques were utilized for this exam: automated exposure control, adjustment of mA and/or KV based on patient size, or use of iterative reconstructive technique. FINDINGS: Lung Bases: The lung bases are without evidence of a mass infiltrate. Solid organs: The liver is without evidence of an enhancing mass. The spleen, pancreas, and adrenal glands are normal in appearance. The kidneys are without evidence of a mass or hydronephrosis. Peritoneal Cavity/Bowel: There are no dilated loops of bowel to suggest the presence of an obstruction. Diverticuli are seen involving the sigmoid colon. There is no fat stranding or fluid collection to suggest the presence of diverticulitis. Pelvic Organs: There is redemonstration of a tubular structure communicating with the superior aspect of the left side of the urinary bladder (image 52 of series 3 and image 16 of series 5) this may represent an atypical diverticulum or ectopic left ureter. Adjacent fat stranding is noted. It does not appear to communicate with the adjacent bowel. This was seen on the previous studies. No mass or cyst is seen within the pelvis. There is no periaortic or pelvic lymphadenopathy. Vasculature: There is atherosclerosis of the iliac arteries without evidence of an abdominal aortic aneurysm. Bones: There are degenerative changes of the thoracic and lumbar spine. Other: None. IMPRESSION: Fat stranding adjacent to a structure communicating with the left side of the urinary bladder that may represent an ectopic ureter or atypical diverticulum with acute inflammatory changes. Diverticulosis of the colon without evidence of diverticulitis. RADIA The call report notification system was initiated by Dr. Isabelle Menon at 01:43 PM on 03/20/2019. ADDENDUM: 03/20/19 14:07 The atypical diverticulum may be arising from the urinary bladder, not the colon. Findings discussed with Alondra Hester at 2:07 PM on 03/20/2019. ADDENDUM: 03/20/19 14:22 The above call report findings were discussed with Alondra Fatima by Dr. Isabelle Menon at 02:22 PM on 03/20/2019.
[2019-03-20] MEDS ORDERED: IOVERSOL 320 50 ML VIAL PO ONE (14:28)
== END 2019-03-20 11:11 | disposition home or self-care (01) ==
LOC: DI 11:10
PROVIDERS: ATTEND Physician Assistant
DX: K57.92 Diverticulitis of intestine, part unspecified, without perforation or abscess without bleeding (principal); K57.30 Diverticulosis of large intestine without perforation or abscess without bleeding
CPT/HCPCS: 74177; Q9967

== ENCOUNTER 2019-06-11 08:00 | Outpatient (CLI) | payer MEDICARE, OTHER ==
[2019-06-11 12:37] LABS: BASOPHILS % (AUTO) 0.6 %; EOSINOPHILS # (AUTO) 0.2 10^3/uL (0.0-0.7); EOSINOPHILS % (AUTO) 3.2 %; HGB - HEMOGLOBIN 14.4 g/dL (12.0-16.0); LYMPHOCYTES # (AUTO) 1.8 10^3/uL (1.5-3.5); LYMPHOCYTES % (AUTO) 33.5 %; MEAN PLATELET VOLUME 9.4 fL (7.9-10.8); MONOCYTES # (AUTO) 0.5 10^3/uL (0.0-1.0); MONOCYTES % (AUTO) 9.7 %; NEUTROPHILS # (AUTO) 2.8 10^3/uL (1.5-6.6); NEUTROPHILS % (AUTO) 52.8 %; PLT - PLATELET COUNT 222 10^3/uL (130-450); RED BLOOD COUNT 4.64 10^6/uL (4.20-5.40); RED CELL DISTRIBUTION WIDTH 13.1 % (12.0-15.0); WHITE BLOOD COUNT 5.3 x10^3/uL (4.8-10.8)
[2019-06-11 13:20] LABS: ALBUMIN 4.2 g/dL (3.2-5.5); ALBUMIN/GLOBULIN RATIO 1.6 (1.0-2.2); CALCIUM 9.4 mg/dL (8.5-10.3); CREATININE 0.8 mg/dL (0.4-1.0); TOTAL PROTEIN 6.9 g/dL (6.7-8.2)
== END 2019-06-11 23:59 | disposition home or self-care (01) ==
LOC: LAB.WCP 08:00
PROVIDERS: ATTEND Family Medicine
DX: R06.2 Wheezing (principal)
CPT/HCPCS: 36415; 80053; 85025

== ENCOUNTER 2019-06-14 07:33 | Outpatient (CLI) | payer MEDICARE, OTHER | END 2019-06-14 07:34 | disposition home or self-care (01) | LOC: DI 07:33 | PROVIDERS: ATTEND Family Medicine | DX: I51.7 Cardiomegaly (principal); R06.2 Wheezing | CPT/HCPCS: 93306 ==

== ENCOUNTER 2019-09-13 10:26 | Outpatient (CLI) | payer MEDICARE, OTHER ==
--- NOTE | 2019-09-14 14:48 | XRAY Report ---
Reason: R68.89.PAIN IN LEFT SHOULDER Procedure Date: 09/13/2019 Accession Number: [id number] / [id number] Procedure: XR - Shoulder 3 View LT CPT Code: Final Report FULL RESULT: EXAM: LEFT SHOULDER RADIOGRAPHY EXAM DATE: 09/13/2019 11:18 AM. CLINICAL HISTORY: Pain. COMPARISON: Left shoulder radiographs from 03/04/2019. TECHNIQUE: 3 views. FINDINGS: Bones: There is osseous demineralization. There is somewhat bowed appearance of the proximal humerus as well as flattening of the humeral head-neck interface, similar to the prior examination possibly representing sequela of old fracture. There are old fractures of the left clavicle and multiple left posterior ribs. No acute fracture demonstrated. Joints: No dislocation or subluxation. There is moderate joint space narrowing at the glenohumeral joint and mild joint space narrowing of the acromioclavicular joint. Soft tissues: No periarticular calcifications are demonstrated. Visualized portions of the left lung are clear. IMPRESSION: 1. No acute osseous or articular abnormality. 2. Suspect old fracture deformity of the left proximal humerus with old fractures of the left clavicle and multiple left-sided ribs. 3. DJD at the acromioclavicular and glenohumeral joints. RADIA
== END 2019-09-13 10:27 | disposition home or self-care (01) ==
LOC: LAB 10:26 → DI 10:27
PROVIDERS: ATTEND Physician Assistant
DX: M19.012 Primary osteoarthritis, left shoulder (principal); R68.89 Other general symptoms and signs
CPT/HCPCS: 36415; 84443

== ENCOUNTER 2019-10-07 07:00 | Outpatient (CLI) | payer MEDICARE, OTHER | END 2019-10-07 23:59 | disposition home or self-care (01) | LOC: LAB.WCP 07:00 | PROVIDERS: ATTEND Family Medicine | DX: N39.0 Urinary tract infection, site not specified (principal) | CPT/HCPCS: 87086; 87181 ==

== ENCOUNTER 2019-10-21 10:17 | Outpatient (CLI) | payer MEDICARE, OTHER ==
[2019-10-21 10:57] LABS: CREATININE 0.8 mg/dL (0.4-1.0)
[2019-10-21] MEDS ORDERED: IOVERSOL 320 100 ML VIAL IVP ONE ×2 (11:26→13:43)
--- NOTE | 2019-10-21 13:03 | CT Report ---
Reason: SUBMANDIBULAR SALIVARY GLAND SWELLING, THROAT SWEL Procedure Date: 10/21/2019 Accession Number: [id number] / [id number] Procedure: CT - SOFT TISSUE NECK W CPT Code: Final Report FULL RESULT: EXAM: CT SOFT TISSUE NECK WITH CONTRAST. EXAM DATE: 10/21/2019 12:01 PM. HISTORY: Throat swelling. Submandibular gland swelling. COMPARISONS: 05/15/2013. TECHNIQUE: Routine soft tissue neck CT protocol with contrast. Reconstructions: Coronal and sagittal. IV contrast: 75 mL IV Optiray 320. In accordance with CT protocol optimization, one or more of the following dose reduction techniques were utilized for this exam: automated exposure control, adjustment of mA and/or KV based on patient size, or use of iterative reconstructive technique. FINDINGS: Symmetric unremarkable appearance of the parotid and submandibular salivary glands. No evidence for infection, focal tumor mass, obstruction or radiopaque calculus. No acute inflammatory or infiltrative changes in the adjacent soft tissues. Unremarkable contours of the pharynx and larynx. Symmetric vocal cords. Normal epiglottis. No upper airway narrowing or evidence for acute inflammation or focal space occupying mass. No pathologically enlarged cervical lymph nodes. 6 mm subtle hypodensity of the right lobe of the thyroid gland. Clinical significance is uncertain, but doubtful. Otherwise unremarkable appearance of the thyroid. No other evidence for acute soft tissue abnormality or mass of the neck. Chronic dental disease. Stable irregular cortical hypertrophy of the mandible. Similar findings of advanced chronic multilevel degenerative cervical spinal spondylosis including kyphosis, subluxations and especially severe disk degeneration at C4-C5. No focal acute intracranial abnormality identified. Contrast opacification of the internal jugular veins and the cervical carotid arteries is present as expected. Ethmoid mucosal thickening bilaterally. Small right maxillary sinus air-fluid level with mucosal thickening. IMPRESSION: 1. No evidence for acute soft tissue abnormality, adenopathy or mass in the neck. 2. No significant abnormality of the major salivary glands identified. 3. Again seen are findings of prominent chronic multilevel degenerative cervical spinal spondylosis and chronic dental disease. 4. Sinusitis. RADIA The call report notification system was initiated by Dr. David Henry at 12:39 PM on 10/21/2019. The above call report findings were discussed with Dr. Finch by Dr. David Henry at 12:43 PM on 10/21/2019.
== END 2019-10-21 10:18 | disposition home or self-care (01) ==
LOC: DI 10:17
PROVIDERS: ATTEND Family Medicine
DX: J32.9 Chronic sinusitis, unspecified (principal); M50.321 Other cervical disc degeneration at C4-C5 level; M47.812 Spondylosis without myelopathy or radiculopathy, cervical region; R22.1 Localized swelling, mass and lump, neck
CPT/HCPCS: 36415; 70491; 82565; Q9967

== ENCOUNTER 2020-04-23 09:13 | Outpatient (CLI) | payer MEDICARE, OTHER ==
[2020-04-23 10:34] VITALS: BP 100/70
--- NOTE | 2020-04-23 10:34 | SLEEP CARE CONSULTATION ---
Information from patient questionnaire entered by Imani Pena. I have reviewed and concur with the information entered by Imani Pena. This document represents the service I personally performed and the decisions made by me, Jessica Perry, RN, MSN, PROJECT INTERN. History of Present Illness Service Date and Time: 04/23/2020912 Previous diagnosis: Moderate, Obstructive Sleep Apnea-Hypopnea Syndrome AHI: 26.5 (in 2013)(57 in 1999) Reason for follow up: annual (last seen 2018) Equipment type: CPAP Equipment obtained from: [facility] (difficulty getting supplies despite repeated attempts / especially filters and correct size of pillows) Mask style: Nasal pillows (Sharon) Backup mask available: Yes (old mask ) Last cushion change: every few weeks Prior sleep studies: Yes Year and Where: 2013 - [facility], 1999 - [facility] Type of Sleep Study: Polysomnography CPAP Compliance Data - Data Reviewed with Patient Average duration of nightly device use: 8.55 Compliance rate %: 79.4 (180 days) Current pressure setting (cmH2O): 9 Humidity settin Heated hose settin Average residual AHI: 1.7 Average large leak: 8 min 16 sec Subjective Missed days of use due to: reports: travel (with her [employer]) Patient concerns: reports: aerophagia (most mornings mild distention / relieved with burping and flatus ), dry mouth, nose, throat (dry mouth occasionally ). denies: mask discomfort, air blowing in eyes, mask leak noise, condensation in mask/hose, nasal congestion, epistaxis, other Observed to snore while using device: No Current pressure setting perceived as: comfortable On therapy, patient: reports: sleeping better, awakening more refreshed, being more awake and alert during the day, more rested overall. denies: drowsiness while driving Initial [place] Sleepiness Scale score: 7 (in 2008) Allergies and Home Medications Known drug allergies: Yes (see list above ) Home medication list reviewed: No (no changes / on hormones and supplements) Review of Systems Review of systems same as previous: Yes Physical Exam Blood Pressure: 100/70 Cuff size: regular Heart Rate: 77 O2 Saturation: 97 Height: 4 ft 8 in Impression and Plan 1. Obstructive Sleep Apnea-Hypopnea Syndrome, moderate, with good treatment compliance and good apnea control. On CPAP therapy, the patient has better sleep quality and is more rested overall. For aerophagia, I will lower her to an autoCPAP of 7-8cmH20. She is to call me if symptoms not resolved or pressure discomfort. For oral dryness, she can increase humidity or lower heated hose. I will have staff give directions until her device is updated. For patient supply concerns. Patient was notified that another DME can be used. She would like to transfer. I will have my aquatics coordinator inform of DME options. A DWO prescription will then be made. Patient advised to contact this office if further supply problems. Her CPAP is over 5 years old and patient would like to update. Follow up process for compliance check discussed. Patient's apnea severity and rationale for treatment to reduce apnea, improve sleep quality and reduce cardiovascular and cerebrovascular events was reviewed. * Change auto CPAP pressure at 7-8 cmH2O * Update CPAP * Transfer DME * Implement methods to reduce oral dryness * Notify me if snoring with mask or feeling that the pressure is too much or too little * Attempt to lose weight * Call this office if any problems using CPAP * Return for follow up 6 weeks after new device , or sooner if concerns arise Visit Type: In Office Time Spent with Patient (minutes): 25 Provider Statement: I spent 100% of the Face to Face Visit with the patient with greater than 50% spent counseling the patient and coordination of care.
== END 2020-04-23 09:14 | disposition home or self-care (01) ==
LOC: SC 09:13
PROVIDERS: ATTEND Nurse Practitioner Family
DX: G47.33 Obstructive sleep apnea (adult) (pediatric) (principal)
CPT/HCPCS: 99214; G0463; 99212

== ENCOUNTER 2020-05-22 08:58 | Outpatient (CLI) | payer MEDICARE, OTHER ==
[~2020-05-22 08:58] MED LIST: LEVALBUTEROL 1.25 MG/3 ML NEB INH SCH
== END 2020-05-22 08:59 | disposition home or self-care (01) ==
LOC: RT 08:58
PROVIDERS: ATTEND Family Medicine
DX: J44.9 Chronic obstructive pulmonary disease, unspecified (principal)
CPT/HCPCS: 94060

== ENCOUNTER 2020-07-22 08:34 | Outpatient (CLI) | payer MEDICARE, OTHER ==
--- NOTE | 2020-07-22 09:26 | SLEEP CARE CONSULTATION ---
Information from patient questionnaire entered by Imani Pena. I have reviewed and concur with the information entered by Imani Pena. This document represents the service I personally performed and the decisions made by me, Jessica Perry, RN, MSN, FRUIT F[employer]ER. History of Present Illness Service Date and Time: 07/22/2020833 Previous diagnosis: Moderate, Obstructive Sleep Apnea-Hypopnea Syndrome AHI: 26.5 (in 2013)(57 in 1999) Reason for follow up: first compliance after device update Equipment type: CPAP Equipment obtained from: [facility] Mask style: Nasal pillows Backup mask available: Yes (old mask) Last cushion change: 2 days ago Prior sleep studies: Yes Year and Where: 2013 - [facility], 1999 - [facility] Type of Sleep Study: Polysomnography Sleep Study - Results Prior sleep studies: Yes Year and Where: 2013 - [facility], 1999 - [facility] CPAP Compliance Data - Data Reviewed with Patient Average duration of nightly device use: 8.5 Compliance rate %: 87 (used old CPAP when not using new pap3.6) Current pressure setting (cmH2O): 7-8 Average residual AHI: 0.5 Average large leak: 3.6 liters minute Subjective Missed days of use due to: reports: other (used old machine while adjusting to new one) Patient concerns: reports: other (i think the pressure is to low.). denies: aerophagia, mask discomfort, air blowing in eyes, mask leak noise, condensation in mask/hose, nasal congestion, dry mouth, nose, throat, epistaxis Observed to snore while using device: No Current pressure setting perceived as: too low (sleeps better with old CPAP) On therapy, patient: reports: sleeping better, being more awake and alert during the day (she does not sleep as well with new CPAP that she thinks the pressure is too low) Initial [place] Sleepiness Scale score: 7 (in 2008) Current [place] Sleepiness Scale score: 2 Allergies and Home Medications Known drug allergies: Yes Home medication list reviewed: No (no changes ) Review of Systems Review of systems same as previous: No (pulmonary rehab) Physical Exam Height: 4 ft 8 in Weight: 88 lb (stable) Body Mass Index: 19.7 BMI Classification: Healthy weight Impression and Plan 1. Obstructive Sleep Apnea-Hypopnea Syndrome, moderate, with good treatment compliance and good apnea control on her updated Res Med CPAP . On CPAP therapy, the patient has better sleep quality and is more rested overall. However, she has not been sleeping as well with her new CPAP and thinks the pressure is too low. I reviewed past visit notes and noted that the previous CPAP pressure was 9cmH20 but was reduced to 7-8cmH20 due to symptoms of aerophagia. She denies any aerophagia presently and states she usually has lots of gas overall. Thus for comfort of pressure I will increase her autoCPAP to 8-9 cmH20. She is to contact me if the pressure change is uncomfortable or insufficient. Patient agreed with plan. This visit was done per phone to due to Covid 19 precautions as patient states she is unable to use a mask. She is currently in pulmonary rehab. Patient's apnea severity and rationale for treatment to reduce apnea, improve sleep quality and reduce cardiovascular and cerebrovascular events was reviewed. I also reviewed the benefit of consistent device use of CPAP for hypertension. * * Change auto CPAP pressure to 8-9 cmH2O * Notify me if snoring or aerophagia * Call this office if any problems using CPAP * Return for follow up in 1 year , or sooner if concerns arise Visit Type: Telehealth Phone Patient Location: car Location of Provider: Office Patient agrees and consents to this telehealth visit type: Yes Patient agrees to have their insurance billed: Yes Time Spent with Patient (minutes): 14 Provider Statement: I spent 100% of the Telehealth Phone Call with the patient with greater than 50% spent counseling the patient and coordination of care.
== END 2020-07-22 08:35 | disposition home or self-care (01) ==
LOC: SC 08:34
PROVIDERS: ATTEND Nurse Practitioner Family
DX: G47.33 Obstructive sleep apnea (adult) (pediatric) (principal)

== ENCOUNTER 2021-04-01 08:34 | Outpatient (CLI) | payer MEDICARE, OTHER ==
[2021-04-01] MEDS ORDERED: IOPAMIDOL-300 50 ML VIAL ONE (08:50)
[2021-04-01] MEDS ORDERED: IOVERSOL 320 100 ML VIAL IVP ONE ×2 (08:50→10:35)
[2021-04-01] MEDS ORDERED: IOPAMIDOL-300 50 ML VIAL PO ONE (10:35)
--- NOTE | 2021-04-01 11:47 | CT Report ---
PROCEDURE: Abdomen/Pelvis W INDICATIONS: ABDOMINAL PAIN CONTRAST: IV CONTRAST: Isovue 300 ml: 100 PO CONTRAST: *NO PO CONTRAST TECHNIQUE: After the administration of IV and oral contrast, 5 mm thick sections acquired from the diaphragms to the symphysis. 5 mm thick coronal and sagittal reformats were acquired. For radiation dose reducti on, the following was used: automated exposure control, adjustment of mA and/or kV according to eusebia ent size. COMPARISON: 03/20/2019 CT abdomen pelvis FINDINGS: ABDOMEN: Lung bases: Normal Heart: Borderline enlarged Liver: Hepatic steatosis Gallbladder: Unremarkable Bile ducts: Normal. Pancreas: Normal. Spleen: Normal. Adrenals: Normal. Kidneys and ureters: Normal. Stomach and duodenum: Colonic diverticulosis incidentally noted without evidence of acute inflammatio n. Bowel: Large amount of stool. No definite bowel wall thickening. Other: No free fluid or air. Abdominal nodes: Normal. Aorta: Normal in size. IVC: Normal. Ventral wall: Normal. PELVIS: Bladder: Normal. Pelvic nodes: Normal. Inguinal: No hernia. Bones: Diffuse osteopenia, spondylosis and facet arthropathy. IMPRESSION: Overall, no specific acute abnormality identified. Hepatic steatosis Incidental colonic diverticulosis Additional chronic and incidental findings as above. Reviewed by: Hema Fernandez MD on 04/01/2021 11:46 AM PDT Approved by: Hema Fernandez MD on 04/01/2021 11:46 AM PDT Station ID: [id number]
== END 2021-04-01 08:35 | disposition home or self-care (01) ==
LOC: DI 08:34
PROVIDERS: ATTEND Family Medicine
DX: K76.0 Fatty (change of) liver, not elsewhere classified (principal); K57.30 Diverticulosis of large intestine without perforation or abscess without bleeding
CPT/HCPCS: 74177; Q9967

== ENCOUNTER 2021-07-16 11:27 | Outpatient (CLI) | payer MEDICARE, OTHER ==
--- NOTE | 2021-07-16 12:07 | SLEEP CARE CONSULTATION ---
Information from patient questionnaire entered by Imani Pena. I have reviewed and concur with the information entered by Imani Pena. This document represents the service I personally performed and the decisions made by , Yaritza Swartz ARNP. History of Present Illness Service Date and Time: 07/16/2021 1127 Previous diagnosis: Moderate, Obstructive Sleep Apnea-Hypopnea Syndrome AHI: 26.5 (in 2013)(57 in 1999) Reason for follow up: annual (last seen 07/2020) Equipment type: CPAP Equipment obtained from: [employer] (getting supplies as needed) Mask style: Nasal pillows Mask brand: Resmed (Sharon) Backup mask available: Yes (old mask) Last cushion change: last week Prior sleep studies: Yes Year and Where: 2013 - [facility], 1999 - [facility] HPI additional information: RAFFI MOBLEY was diagnosed to have moderate, AHI 26.5, obstructive sleep apnea- hypopnea syndrome and returned today for CPAP therapy annual follow-up. CPAP Compliance Data - Data Reviewed with Patient Average duration of nightly device use: 8 hr 14 min Compliance rate %: 100 (180 days) Current pressure setting (cmH2O): 9 Humidity settin Average residual AHI: 0.4 Subjective Patient concerns: reports: other (would like to change the ear loops more frequently than the DME will sends). denies: aerophagia, mask discomfort, air blowing in eyes, mask leak noise, condensation in mask/hose, nasal congestion, dry mouth, nose, throat, epistaxis Observed to snore while using device: No Current pressure setting perceived as: comfortable On therapy, patient: reports: sleeping better, awakening more refreshed, being more awake and alert during the day, more rested overall. denies: drowsiness while driving Initial [place] Sleepiness Scale score: 7 (in 2008) Current [place] Sleepiness Scale score: 4 Allergies and Home Medications Home medication list reviewed: Yes (no changes) Review of Systems Review of systems same as previous: Yes (no changes) Physical Exam Heart Rate: 81 O2 Saturation: 94 Height: 4 ft 8 in Weight: 88 lb 12.8 oz Body Mass Index: 19.9 BMI Classification: Healthy weight Impression and Plan 1. Obstructive Sleep Apnea-Hypopnea Syndrome, moderate, with excellent treatment compliance and excellent apnea control. On CPAP therapy, the patient has better sleep quality and is more rested overall. Patient is satisfied with her current treatment and has excellent control of her sleep apnea. Patient has no complaints. She states she wishes she could get the ear looks for her mask more often because they become soiled and even though she washes them regularly it can irritate her skin. Patient's apnea severity and rationale for treatment to reduce apnea, improve sleep quality and reduce cardiovascular and cerebrovascular events was reviewed. I also reviewed the benefit of consistent device use of CPAP for hypertension. * Continue auto CPAP pressure at 9 cmH2O * Notify me if snoring with mask or feeling that the pressure is too much or too little * Maintain a healthy weight * Call this office if any problems using CPAP * Return for follow up in 1 year, or sooner if concerns arise Counseling Topics: Spare mask, Weight control Visit Type: In Office Time Spent with Patient (minutes): 15 Provider Statement: I spent 100% of the Face to Face Visit with the patient with greater than 50% spent counseling the patient and coordination of care.
== END 2021-07-16 11:28 | disposition home or self-care (01) ==
LOC: SC 11:27
PROVIDERS: ATTEND Nurse Practitioner Family
DX: G47.33 Obstructive sleep apnea (adult) (pediatric) (principal)
CPT/HCPCS: 99212; G0463

== ENCOUNTER 2022-08-12 12:49 | Outpatient (CLI) | payer MEDICARE, OTHER ==
[2022-08-12 13:38] VITALS: BP 104/78
--- NOTE | 2022-08-12 13:38 | SLEEP CARE CONSULTATION ---
Information from patient questionnaire entered by Carmela Dooley. I have reviewed and concur with the information entered by Carmela Dooley. This document represents the service I personally performed and the decisions made by me, Yaritza Swartz ARNP. History of Present Illness Service Date and Time: 08/12/2022 1249 Previous diagnosis: Moderate, Obstructive Sleep Apnea-Hypopnea Syndrome AHI: 26.5 (in 2013)(57 in 1999) Reason for follow up: annual (LAST SEEN 07/2021) Equipment type: CPAP (RESMED) Equipment obtained from: [employer] (getting supplies as needed) Mask style: Nasal pillows (Sharon) Backup mask available: Yes (old mask) Last cushion change: 2 weeks Prior sleep studies: Yes Year and Where: 2013 - [facility], 1999 - [facility] HPI additional information: RAFFI MOBLEY was diagnosed to have moderate, AHI 26.5, obstructive sleep apnea- hypopnea syndrome and returned today for CPAP therapy annual follow-up. Sleep Study - Results Prior sleep studies: Yes Year and Where: 2013 - [facility], 1999 - [facility] CPAP Compliance Data - Data Reviewed with Patient Average duration of nightly device use: 8 hours, 19 minutes Compliance rate %: 100 (02/12/22 to 08/10/22; 180/180 days used) Current pressure setting (cmH2O): 9 Average residual AHI: 0.5 Central apnea: 0.0 Obstructive apnea: 0.5 Subjective Patient concerns: reports: dry mouth, nose, throat (occasional; thinks Vit D is too high causing dry mouth). denies: aerophagia, mask discomfort, air blowing in eyes, mask leak noise, condensation in mask/hose, nasal congestion, epistaxis Observed to snore while using device: No Current pressure setting perceived as: comfortable On therapy, patient: reports: sleeping better, awakening more refreshed, being more awake and alert during the day, more rested overall. denies: drowsiness while driving Initial [place] Sleepiness Scale score: 7 (in 2008) Current [place] Sleepiness Scale score: 2 (08/12/22) Allergies and Home Medications Home medication list reviewed: Yes (no changes) Allergy and home medication list: Allergies sulfamethoxazole [From ] Allergy (Intermediate, Verified 10/08/17 11:25) Hives trimethoprim [From Septra] Allergy (Intermediate, Verified 10/08/17 11:25) Hives levofloxacin [From Levaquin] Allergy (Verified 10/08/17 11:25) Nausea Review of Systems Review of systems same as previous: Yes (no changes) Physical Exam Vital signs obtained and entered by: JAMSHID TEJADA Blood Pressure: 104/78 (left arm ) Cuff size: regular Heart Rate: 115 O2 Saturation: 96 Height: 4 ft 8 in Weight: 86 lb Body Mass Index: 19.3 BMI Classification: Normal Impression and Plan 1. Obstructive Sleep Apnea-Hypopnea Syndrome, moderate, with excellent treatment compliance and excellent apnea control. On CPAP therapy, the patient has better sleep quality and is more rested overall. Patient has significant improvement of their sleep apnea and are satisfied with current CPAP therapy. Patient denies problems with oral dryness, nasal congestion, epistaxis, skin irritation or aerophagia. Patient's apnea severity and rationale for treatment to reduce apnea, improve sleep quality and reduce cardiovascular and cerebrovascular events was reviewed. I also reviewed the benefit of consistent device use of CPAP for hypertension. * Continue CPAP pressure at 9 cmH2O * Update supplies * Notify me if snoring with mask or feeling that the pressure is too much or too little * Maintain a healthy weight * Call this office if any problems using CPAP * Return for follow up in 1 year, or sooner if concerns arise Counseling Topics: Spare mask Visit Type: In Office Time Spent with Patient (minutes): 20 Provider Statement: I spent 100% of the Face to Face Visit with the patient with greater than 50% spent counseling the patient and coordination of care.
== END 2022-08-12 12:50 | disposition home or self-care (01) ==
LOC: SC 12:49
PROVIDERS: ATTEND Nurse Practitioner Family
DX: G47.33 Obstructive sleep apnea (adult) (pediatric) (principal)
CPT/HCPCS: 99213; G0463; 99212

== ENCOUNTER 2023-05-25 07:44 | Outpatient (CLI) | payer MEDICARE, OTHER ==
--- NOTE | 2023-05-25 08:46 | XRAY Report ---
PROCEDURE: Chest 2 View X-Ray INDICATIONS: COUGH TECHNIQUE: 2 views of the chest were acquired. COMPARISON: Chest radiographs 06/11/2019 FINDINGS: Surgical changes and devices: None. Lungs and pleura: No pleural effusion or pneumothorax. No definite acute appearing airspace opacity identified. Mediastinum: Cardiac silhouette is enlarged as before. Pulmonary vasculature appears congested. Bones and chest wall: No suspicious bony lesions. Overlying soft tissues appear unremarkable. IMPRESSION: 1. No definite acute appearing airspace opacity identified. 2. Cardiac silhouette is enlarged with appearance of pulmonary vascular congestion. Reviewed by: Kwabena Weaver MD on 05/25/2023 8:44 AM PDT Approved by: Kwabena Weaver MD on 05/25/2023 8:44 AM PDT Station ID: [id number]
== END 2023-05-25 07:45 | disposition home or self-care (01) ==
LOC: DI 07:44
PROVIDERS: ATTEND Physician Assistant
DX: R06.02 Shortness of breath (principal); R05.9 Cough, unspecified; I51.7 Cardiomegaly

== ENCOUNTER 2023-06-08 10:10 | Outpatient (CLI) | payer MEDICARE, OTHER | END 2023-06-08 10:11 | disposition home or self-care (01) | LOC: RT 10:10 | PROVIDERS: ATTEND Physician Assistant | DX: R06.02 Shortness of breath (principal); R05.9 Cough, unspecified | CPT/HCPCS: 94010; 94727; 94729 ==